=== PATIENT | male | born 1950 | race Caucasian/White ===

== ENCOUNTER 2024-03-15 04:01 | Emergency (ER) | payer MEDICARE, BC, SELFPAY ==
[2024-03-15 04:14] VITALS: BP 150/88
[2024-03-15 08:13] VITALS: BP 199/93
[2024-03-15 08:16] VITALS: BMI 24.5
--- NOTE | 2024-03-15 08:32 | ED.GENMED ---
History of Present Illness
General
Chief Complaint: Throat Problem
Source: patient
Time Seen by Provider: 03/15/24 08:12
History of Present Illness
History of Present Illness:
This patient is a 73-year-old male presents emergency department after being diagnosed with COVID with a home test x 2 on Thursday. He describes nasal congestion, ear pain, headache, and a slight fever. He is tolerating p.o. and denies nausea,
vomiting, dyspnea, chest pain, neck pain. He got concerned because yesterday afternoon he noted 'white spots' on the back of his throat. He called his doctor to be seen today and was referred to the emergency department. He also feels like his
uvula is slightly swollen. He denies trouble swallowing, change in voice, trismus, drool, or other complaints.
Past History
Past History
ED Past Medical History: Cancer (Skin cancer on nose), Psychiatric (Anxiety ) and Other (Hemorrhoids, PMR)
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
Social History
Tobacco: Non-smoker
Alcohol: Occasional
Personal: Single
Living: alone
Employment: Retired
Phy Exam
Physical Exam
Physical Exam:
GENERAL: Alert , in no apparent distress
EYE: pupils equal and reactive
NECK: Supple, no significant adenopathy.
ENT: Mucous membranes moist, no trismus, no drool, voice clear, no submental swelling. His uvula is mildly swollen. I do not appreciate posterior pharyngeal exudate but there is posterior pharyngeal erythema as well as a small superficial
ulceration noted at the right inner buccal area
CARDIAC: Regular rate and rhythm .
LUNGS: Clear breath sounds bilaterally, no acute respiratory distress, no wheezes/rales/rhonchi
ABDOMEN: Soft, without focal tenderness, no r/g, no cvat
NEUROLOGICAL: Alert and oriented, no focal neuro deficits
SKIN: Warm and dry, skin intact.
MUSCULOSKELETAL: No edema, well perfused.
PSYCH: Normal and appropriate interaction.
Course
Orders/Labs/Results
Orders:
Orders
03/15/24 08:35
Nirmatrelvir/Ritonavir [Paxlovid 2X150 mg-100 mg Dose Pack] 1 dose PO NOW STA
03/15/24 09:24
Rapid Strep Group A Urgent
CHAR Source: Throat/Pharynx
Specimen Description:
Date Specimen was Collected: 03/15/24
Time Specimen was Collected: :23
Vital Signs
Initial and Last Documented VS:
Initial Vital Signs
Temp Pulse Resp BP Pulse Ox
98.2 F 76 20 150/88 97
03/15/24 04:14 03/15/24 04:14 03/15/24 04:14 03/15/24 04:14 03/15/24 04:14
Last Documented Vital Signs
Temp Pulse Resp BP Pulse Ox
98.2 F 64 20 199/93 98
03/15/24 04:14 03/15/24 08:00 03/15/24 04:14 03/15/24 08:13 03/15/24 08:19
*Critical Care Note
Total Time (30-74mins, 75-104mins- exclusive of procedures): Not Applicable
Update Note
Update Note:
Patient presents to the Emergency Department with COVID and posterior pharyngeal exudate
Number and Complexity of Problems Addressed at the Encounter
� Chronic conditions affecting care: Patient is on immunosuppressive's due to his history of PMR
� Acute Exacerbation and/or Progression of Chronic Illness:
� Differential Diagnosis includes: But not limited to strep pharyngitis, viral illness, COVID related symptoms, etc.
Amount and/or Complexity of Data to be Reviewed and Analyzed
� I performed an independent evaluation of and my interpretation is:
EKG:
CT:
Xrays:
Laboratory Studies:STREPT NEGATIVE
Other:
� Review of other/old records reveals:
� Clinical information was obtained by an independent historian:
� Prescriptions/Medications Considered but not given:
� Further testing considered but not performed:
Risk of Complications and/or Morbidity or Mortality of Patient Management
� Social determinants of health affecting care:
� Discussion with other providers (PCP, Hospitalists, Consultants, etc):
� Escalation of care including admission/observation vs risk of discharge considered: Pt remains well appearing, in nad, p ox wnl, no difficulty breathing/swallowing. Given immunocompromised state, r/b explained, pt would like
to take paxlovid. I advised no flomax while taking (his last dose was last night), and import of close f/u and reasons to rted.
ED Attending Note
-
Portions of this chart may have been created with voice recognition software.� Occasional wrong word or��sound alike� substitutions may have occurred due to the inherent limitations of voice recognition software.
Discharge Plan
Departure
Patient Disposition: Home (Routine Discharge)
Date of Disposition: 03/15/24
Time of Disposition: 09:56
Patient with high blood pressure during this ER visit?: Yes
Condition: Good
Discharge Problem:
COVID
Instructions: Sore Throat, Adult (DC), Nirmatrelvir and Ritonavir, COVID-19 - ED discharge instructions, BLOOD PRESSURE
Prescriptions:
New
Paxlovid 300 mg (150 mg x 2)-100 mg tablets,dose pack
See Rx Instructions .ROUTE .COMPLEX Qty: 30 0RF
Rx Instructions:
take TWO 150 mg tablets of nirmatrelvir with ONE 100 mg tablet of ritonavir twice daily for 5 days orally;
No Action
cetirizine [Zyrtec] 10 mg Tablet
10 mg PO DAILY
tamsulosin 0.4 mg capsule
0.8 mg PO HS
Align (B.infantis) 4 mg Capsule
4 mg PO DAILY
inulin 1.5 gram Tablet,Chewable
1.5 g PO QPM
lorazepam [Ativan] 0.5 mg Tablet
0.5 mg PO HS PRN (Reason: anxiety)
pantoprazole 40 mg Tablet,Delayed Release (Dr/Ec)
40 mg PO DAILY 30 Days Qty: 30 0RF
ibuprofen [Advil] 200 mg tablet
400 mg PO Q8H PRN (Reason: pain) Qty: 30 0RF
prednisone 10 mg Tablet
See Rx Instructions .ROUTE .COMPLEX Qty: 40 0RF
Rx Instructions:
Take By Mouth:
20 mg daily x7 days, 15 mg daily x7 days,
10 mg daily x7 days, 5 mg daily x7 days,
Referrals:
Martir Noriega MD [Family Provider] -
Activity Restrictions/Additional Instructions:
*DO NOT TAKE TAMSULOSIN (FLOMAX) FOR THE NEXT FIVE DAYS, WHILE YOU ARE TAKING THE COVID MEDICATION, PAXLOVID. THIS IS VERY IMPORTANT.*
IF YOU DEVELOP CHEST PAIN, TROUBLE BREATHING, FEVER, TROUBLE SWALLOWING, SWELLING, OR OTHER WORRISOME SIGNS, GO TO THE ER IMMEDIATELY!
Interventions
Interventions:
*Risk Screen - Suicide Last Done: 03/15/24 04:14
*General Assessment Last Done: 03/15/24 08:17
*Neglect/Abuse Screening Last Done: 03/15/24 04:14
*ED COVID-19 Vaccine History Last Done: 03/15/24 08:17
ED- Pulmonary Assessment Last Done: 03/15/24 08:19
Discharge Date and Time
Print Language: BELARUSIAN
[2024-03-15 09:00] VITALS: BP 166/88
[2024-03-15] MEDS: PAXLOVID 2X150 MG-100 MG DOSE PACK 1 DOSE PO (09:56)
[2024-03-15 10:13] VITALS: BP 166/88
== END 2024-03-15 10:15 | disposition home or self-care (01) ==
LOC: EMR 04:01
PROVIDERS: EMERGENCY PHYSICIAN Emergency Medicine; FAMILY PHYSICIAN Family Medicine
DX: U07.1 COVID-19 (principal); R51.9 Headache, unspecified; Z85.828 Personal history of other malignant neoplasm of skin; D84.821 Immunodeficiency due to drugs
CPT/HCPCS: 99283; 87070; 87880

== ENCOUNTER 2024-05-01 09:15 | Emergency (ER) | payer MEDICARE, BC, SELFPAY ==
[2024-05-01 09:20] VITALS: BP 145/84
--- NOTE | 2024-05-01 09:36 | ED.GENMED ---
History of Present Illness
General
Chief Complaint: DVT/Possible Blood Clot
Source: patient
Time Seen by Provider: 05/01/24 09:32
History of Present Illness
History of Present Illness:
73-year-old male presents emergency room complaining of pain in his right calf. Patient states he developed pain while he was walking a few days ago. He has noted some ecchymosis and swelling of his ankle. No chest pain or shortness of breath.
Patient denies any recent travel or periods of immobilization.
Past History
Past History
ED Past Medical History: Cancer (Skin cancer on nose), Psychiatric (Anxiety ) and Other (Hemorrhoids, PMR)
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
Social History
Tobacco: Non-smoker
Alcohol: Occasional
Personal: Single
Living: alone
Employment: Retired
Phy Exam
Physical Exam
Physical Exam:
General: Awake, Alert, Oriented X3. No acute distress.
Vitals: unremarkable
Head: Atraumatic
Eyes: Pupils equal, EOMI
Neck: Trachea midline
Lungs: Clear and equal b/l
Heart: Regular rate, no murmurs
Neuro: Nonfocal exam normal
Skin: Warm, dry, no rash
Extremities: pulses equal b/l, no edema. Tenderness palpation right posterior calf mostly laterally. Some ecchymosis noted at the base of the calf and ankle. Pulses intact
Course
Orders/Labs/Results
Orders:
Orders
05/01/24 09:36
US Periph Venous LOWER Ext RT Urgent
Comment:
Reason For Exam: r calf/leg pain
Vital Signs
Initial and Last Documented VS:
Initial Vital Signs
Temp Pulse Resp BP Pulse Ox
98 F 80 16 145/84 98
05/01/24 09:20 05/01/24 09:20 05/01/24 09:20 05/01/24 09:20 05/01/24 09:20
Last Documented Vital Signs
Temp Pulse Resp BP Pulse Ox
98.6 F 63 16 152/88 98
05/01/24 11:27 05/01/24 11:27 05/01/24 11:27 05/01/24 11:27 05/01/24 11:27
MDM/Problems Addressed
Differential Diagnosis Includes:
DVT, calf hematoma, Yoder's cyst rupture, Muscle strain
MDM/Problems Addressed:
Patient presents with swelling, pain right calf. Ultrasound shows no DVT but does show a structure that is likely hematoma. Conservative management. Follow-up primary.
*Radiology
Radiology exam reviewed: radiology read reviewed
*Pulse Oximetry
Patient hypoxic: no
*Critical Care Note
Total Time (30-74mins, 75-104mins- exclusive of procedures): Not Applicable
ED Attending Note
-
Portions of this chart may have been created with voice recognition software.� Occasional wrong word or��sound alike� substitutions may have occurred due to the inherent limitations of voice recognition software.
Discharge Plan
Departure
Patient Disposition: Home (Routine Discharge)
Date of Disposition: 05/01/24
Time of Disposition: 11:17
Patient with high blood pressure during this ER visit?: Yes
Condition: Good
Discharge Problem:
Hematoma of right lower leg
Instructions: Hematoma
Prescriptions:
No Action
cetirizine [Zyrtec] 10 mg Tablet
10 mg PO DAILY
tamsulosin 0.4 mg capsule
0.8 mg PO HS
Align (B.infantis) 4 mg Capsule
4 mg PO DAILY
melatonin 3 mg Tablet
3 mg PO HS
duloxetine [Cymbalta] 30 mg Capsule,Delayed Release(Dr/Ec)
30 mg PO DAILY
Actemra 400 mg/20 mL (20 mg/mL) Solution
400 mg IV Q4W
Referrals:
Martir Noriega MD [Family Provider] -
Interventions
Interventions:
*Risk Screen - Suicide Last Done: 05/01/24 09:20
*General Assessment Last Done: 05/01/24 09:49
*Neglect/Abuse Screening Last Done: 05/01/24 09:20
ED- Fall Risk Assessment Last Done: 05/01/24 09:40
*ED COVID-19 Vaccine History Last Done: 05/01/24 09:40
*Nursing Disposition Last Done: 05/01/24 11:30
ED- Cardiac Assessment Last Done: 05/01/24 09:40
ED- Pulmonary Assessment Last Done: 05/01/24 09:40
ED-Peripheral Vascular Assessment Last Done: 05/01/24 09:40
ED-Skin Assessment Last Done: 05/01/24 09:40
Discharge Date and Time
Discharge Date/Time: 05/01/24 11:31
Print Language: MICRONESIAN
[2024-05-01 09:40] VITALS: BMI 25.4
[2024-05-01 11:27] VITALS: BP 152/88
== END 2024-05-01 11:31 | disposition home or self-care (01) ==
LOC: EMR 09:15
PROVIDERS: EMERGENCY PHYSICIAN Emergency Medicine; FAMILY PHYSICIAN Family Medicine
DX: S80.11XA Contusion of right lower leg, initial encounter (principal); X58.XXXA Exposure to other specified factors, initial encounter; M79.661 Pain in right lower leg; F41.9 Anxiety disorder, unspecified; Z85.828 Personal history of other malignant neoplasm of skin; Z87.19 Personal history of other diseases of the digestive system
CPT/HCPCS: 99284; 93971